=== PATIENT | female | born 1985 | race Caucasian/White ===

== ENCOUNTER 2018-07-23 01:27 | Emergency (ER) | payer BC ==
--- NOTE | 2018-07-23 01:48 | PDOC ---
History of Present Illness - General Chief Complaint: Ear Problem Stated Complaint: EAR PAIN Time Seen by Provider: 07/23/18 01:44 History Source: Patient - History of Present Illness Initial Comments: 07/23/18 01:49 Pt presents to the ED complaining of a several day history of nasal congestion and sore throat. Presents today because she has bilateral ear pressure, and pain when she yawns. Denies fever, nausea or vomiting, cough or shortness of breath. Denies headache. Multiple sick contacts at work. Patient has not taken medicine because she is currently trying to get and does not want to take medicine that is contra indicated in pregancy. Past History - Past Medical History Allergies/Adverse Reactions: Allergies Allergy/AdvReac Type Severity Reaction Status Date / Time No Known Allergies Allergy Unverified 07/23/18 01:29 Home Medications: Ambulatory Orders Gonal-F 07/23/18 Levothyroxine [Synthroid -] 75 mcg PO Q2D 07/23/18 Levothyroxine [Synthroid -] 100 mcg PO Q2D 07/23/18 Ovidrel 07/23/18 COPD: No Thyroid Disease: Yes Other medical history: TAKING FERTILITY DRUGS - Suicide/Smoking/Psychosocial Hx Smoking History: Never smoked Review of Systems - Review of Systems Able to Perform ROS?: Yes Is the patient limited [place] proficient: No Constitutional: No: Symptoms Reported, See HPI, Chills, Diaphoresis, Fever, Loss of Appetite, Malaise, Night Sweats, Weakness, Weight Stable, Unintentional Wgt. Loss, Unexplained wgt Loss, Other HEENTM: Yes: Ear Pain, Nose Congestion, Throat Pain. No: Symptoms Reported, See HPI, Eye Pain, Blurred Vision, Tearing, Recent change in vision, Double Vision, Cataracts, Ocular Prothesis, Ear Discharge, Nose Pain, Tinnitus, Nose Bleeding, Hearing Loss, Throat Swelling, Mouth Pain, Dental Problems, Difficulty Swallowing, Mouth Swelling, Other Respiratory: No: Symptoms reported, See HPI, Cough, Orthopnea, Shortness of Breath, SOB with Exertion, SOB at Rest, Stridor, Wheezing, Productive cough, Hemoptysis, Other Cardiac (ROS): No: Symptoms Reported, See HPI, Chest Pain, Edema, Irregular Heart Rate, Lightheadedness, Palpitations, Syncope, Chest Tightness, Other ABD/GI: No: Symptoms Reported, See HPI, Abdominal Distended, Abd. Pain w/ defecation, Blood Streaked Bowels, Constipated, Diarrhea, Difficulty Swallowing , Nausea, Poor Appetite, Poor Fluid Intake, Rectal Bleeding, Vomiting, Indigestion, Abdominal cramping, Tarry Stools, Other Musculoskeletal: No: Symptoms Reported, See HPI, Back Pain, Gout, Joint Pain, Joint Swelling, Muscle Pain, Muscle Weakness, Neck Pain, Joint Stiffness, Other Neurological: No: Symptoms reported, See HPI, Headache, Numbness, Paresthesia, Pre-Existing Deficit, Seizure, Tingling, Tremors, Weakness, Unsteady Gait, Ataxia, Dizziness, Other *Physical Exam - Vital Signs Last Vital Signs Temp Pulse Resp BP Pulse Ox 98.8 F 90 18 128/77 100 07/23/18 01:32 07/23/18 01:32 07/23/18 01:32 07/23/18 01:32 07/23/18 01:32 - Physical Exam General Appearance: Yes: Nourished, Appropriately Dressed HEENT: positive: Normal Voice, Pharyngeal Erythema, TM Bulging, TM Erythema (+ mild bulging and erythema of both TMs. good light reflex, no pus observed). negative: Normal ENT Inspection, Symmetrical, TMs Normal, Pharynx Normal, Pale Conjunctivae, Photophobia, Scleral Icterus (R), Scleral Icterus (L), Muffled/ Hoarse voice, Tonsillar Exudate, Tonsillar Erythema, Nasal Congestion, Rhinorrhea, Sinus Tenderness, Orbits, Hearing Decreased, Hearing Grossly Normal , TM Dull, Lesions, [place], Excessive drooling, Thrush, Other Neck: positive: Supple Respiratory/Chest: positive: Lungs Clear, Normal Breath Sounds Cardiovascular: positive: Regular Rhythm, Regular Rate Gastrointestinal/Abdominal: positive: Normal Bowel Sounds Musculoskeletal: positive: Normal Inspection Extremity: positive: Normal Inspection, Normal Range of Motion Integumentary: positive: Normal Color, Dry, Warm Neurologic: positive: Fully Oriented, Normal Mood/Affect *DC/Admit/Observation/Transfer Diagnosis at time of Disposition: Upper respiratory infection Qualifiers: URI type: unspecified URI Qualified Code(s): J06.9 - Acute upper respiratory infection, unspecified - Discharge Dispostion Disposition: HOME Condition at time of disposition: Good Decision to Admit order: No - Referrals - Patient Instructions Printed Discharge Instructions: DI for Viral Upper Respiratory Infection -- Adult Additional Instructions: you came to the ED because you have nasal congestion, sore throat and pain in the ears. These symptoms are most likely caused by an upper respiratory infection. You can take tylenol for pain and use nasal spray for nasal congestion. Warm showers or baths may also help with the congestion. Drink plenty of fluid and get plenty of rest. Return to the ED for severe ear pain with fever, shortness of breath, difficulty swallowing or breathing, other new or worsening symptoms. - Post Discharge Activity
[2018-07-23 01:51] VITALS: BP 128/77; PULSE 90; TEMP 98.8; BMI 24.0
== END 2018-07-23 01:53 | disposition home or self-care (01) ==
LOC: FER 01:27
DX: J06.9 Acute upper respiratory infection, unspecified (principal)
CPT/HCPCS: 99281-25

== ENCOUNTER 2023-08-05 18:30 | Emergency (ER) | payer BC, OTHER ==
[2023-08-05 18:39] VITALS: BP 142/87; PULSE 98; RESP 16; TEMP 98.4; BMI 24.9
== END 2023-08-05 20:10 | disposition home or self-care (01) ==
LOC: FER 18:30
DX: N64.4 Mastodynia (principal); N63.10 Unspecified lump in the right breast, unspecified quadrant
CPT/HCPCS: 71046-TC-FY; 99283-25